=== PATIENT | male | born 1960 | race Hispanic/Latino ===

== ENCOUNTER 2021-08-16 12:41 | Emergency (ER) | payer SELFPAY ==
[~2021-08-16] VITALS: Ht 175.3 cm; Wt 73.2 kg
[2021-08-16 12:51] VITALS: BP 148/107
[2021-08-16 13:01] VITALS: BP 154/106
[2021-08-16 13:18] LABS: HEMATOCRIT 39.7 % (39.0-50.0); HEMOGLOBIN 13.6 g/dl (14.0-18.0); IMMATURE GRANULOCYTES 0.3 % (0.0-5.0); MEAN CELL VOLUME 95.7 fL CALC (80.0-100.0); MEAN CORPUSCULAR HGB 32.8 pG CALC (26.0-32.0); MEAN CORPUSCULAR HGB CONC 34.3 g/dL CAL (32.0-36.0); NEUT# 1.77 thou/uL (1.82-7.42); RED BLOOD COUNT 4.15 mill/uL (4.70-6.10); RED CELL DISTRI WIDTH 13.2 % (11.5-15.5)
[2021-08-16 13:29] LABS: ALBUMIN 4.7 g/dL (3.2-5.0); ALKALINE PHOSPHATASE 130 u/l (38-126); ANION GAP 17 (6-22 (CALC)); BILIRUBIN, TOTAL 0.5 mg/dL (0.0-1.4); BUN 5 mg/dL (9-20); BUN/CREATININE RATIO 7 (12-20 (CALC)); CARBON DIOXIDE 22 mmol/l (22-30); CHLORIDE 96 mmol/l (95-108); CREATININE 0.7 mg/dL (0.7-1.3); GFR > 60 ML/MIN (>=60 (CALC)); GFR FOR AFR.AMER. > 60 ML/MIN (>=60 (CALC)); LIPASE 202 u/l (23-300); POTASSIUM 3.9 mmol/l (3.5-5.1); SGOT/AST 132 u/l (17-59); SODIUM 132 mmol/l (137-146)
[2021-08-16 13:30] VITALS: BP 149/98
[2021-08-16 13:41] LABS: MYOGLOBIN 135 ng/mL (0 - 121)
[2021-08-16 13:52] LABS: URINE BILIRUBIN - DIPSTICK NEGATIVE (NEGATIVE); URINE BLOOD DIPSTICK NEGATIVE (NEGATIVE); URINE COLOR YELLOW; URINE GLUCOSE - DIPSTICK NEGATIVE (NEGATIVE); URINE KETONE NEGATIVE (NEGATIVE); URINE LEUK ESTERASE NEGATIVE (NEGATIVE); URINE PROTEIN - DIPSTICK NEGATIVE (NEG-TRACE); URINE SPECIFIC GRAVITY <=1.005; URINE UROBILINOGEN - DIPSTICK 0.2 E.U./dL (0.2)
[2021-08-16 13:54] LABS: URINE NITRITE - DIPSTICK NEGATIVE (Negative)
[2021-08-16 14:00] VITALS: BP 127/92
[2021-08-16 14:04] LABS: PROTHROMBIN TIME 10.3 SECONDS (9.0-12.5)
[2021-08-16] MEDS ORDERED: NAPROXEN EC375 MG PO (16:59)
[2021-08-17 00:45] VITALS: BP 127/92
== END 2021-08-17 00:52 | disposition home or self-care (01) | DRG 313 ==
LOC: ED 12:41
PROVIDERS: Nurse Practitioner
DX: R07.89 Other chest pain (principal); F10.229 Alcohol dependence with intoxication, unspecified; E11.9 Type 2 diabetes mellitus without complications; Y90.8 Blood alcohol level of 240 mg/100 ml or more; Z20.822 Contact with and (suspected) exposure to COVID-19